=== PATIENT | female | born 1995 | race Two or more races ===

== ENCOUNTER → 2019-12-02 | Outpatient (CLI) | payer OTHER | END | disposition home or self-care (01) | LOC: PRENATAL 13:00 | DX: O99.89 Other specified diseases and conditions complicating pregnancy, childbirth and the puerperium (principal); O35.3XX0 Maternal care for (suspected) damage to fetus from viral disease in mother, not applicable or unspecified; Z36.89 Encounter for other specified antenatal screening ==

== ENCOUNTER → 2020-03-03 | Outpatient (CLI) | payer OTHER | END | disposition home or self-care (01) | LOC: PRENATAL 13:00 | PROVIDERS: ATTEND Obstetrics & Gynecology Maternal & Fetal Medicine | DX: O26.843 Uterine size-date discrepancy, third trimester (principal); O36.8131 Decreased fetal movements, third trimester, fetus 1; Z36.89 Encounter for other specified antenatal screening ==

== ENCOUNTER 2020-04-06 19:32 | Inpatient (IN) | payer OTHER ==
[~2020-04-06] VITALS: Ht 170.2 cm; Wt 90.7 kg
[2020-04-06] MEDS ORDERED: IRON325 MG PO (23:50)
[2020-04-06] MEDS ORDERED: PRENATAL TABLE1 EAC1 PO (23:50)
== END 2020-04-08 11:20 | disposition home or self-care (01) | DRG 807 ==
LOC: LDR 19:32
PROVIDERS: ADMIT Obstetrics & Gynecology; ATTEND Obstetrics & Gynecology
PROC: 10E0XZZ Delivery of Products of Conception, External Approach (ICD-10-PCS; principal; 2020-04-06)
PROC: 4A0HXFZ Measurement of Products of Conception, Cardiac Rhythm, External Approach (ICD-10-PCS; 2020-04-06)
DX: O80 Encounter for full-term uncomplicated delivery (principal); Z37.0 Single live birth; Z3A.38 38 weeks gestation of pregnancy